=== PATIENT | male | born 1960 | race African-American/Black ===

== ENCOUNTER 2021-07-12 04:40 | Day surgery (SDC) | payer OTHER ==
[2021-07-10 16:09] VITALS: BMI 27.3
[~2021-07-12 04:40] MED LIST: BUPIVACAINE HCL/PF 0.5% (5MG/ML) 10 ML VIAL NR ONE; LIDOCAINE HCL 1%, 10 MG/ML (20ML VIAL) NR ONE; ceFAZolin SODIUM 1 GM VIAL IVPB ONE
[2021-07-12] MEDS ORDERED: LIDOCAINE HCL 1%, 10 MG/ML (20ML VIAL) ONE (09:21)
[2021-07-12] MEDS ORDERED: BUPIVACAINE HCL/PF 0.5% (5MG/ML) 10 ML VIAL ONE (09:21)
[2021-07-12] MEDS ORDERED: PROPOFOL 20 ML ONE ×3 (09:22→11:35)
[2021-07-12] MEDS ORDERED: MIDAZOLAM HCL 2 MG/2 ML SINGLE DOSE VIAL ONE (09:22)
[2021-07-12] MEDS ORDERED: ONDANSETRON 4 MG/2 ML VIAL IVPUSH PRN (09:35)
[2021-07-12] MEDS ORDERED: oxyCODONE HCL 5 MG TABLET PO PRN ×2 (09:35)
[2021-07-12] MEDS ORDERED: LACTATED RINGERS SOLUTION 1,000 ML IV SCH (09:45)
[2021-07-12] MEDS ORDERED: ceFAZolin SODIUM 1 GM VIAL IVPB ONE (09:50)
[2021-07-12] MEDS ORDERED: ceFAZolin SODIUM 1 GM VIAL ONE (09:51)
[2021-07-12] MEDS ORDERED: BUPIVACAINE HCL/PF 0.5% (5MG/ML) 10 ML VIAL NR ONE ×2 (09:53)
[2021-07-12] MEDS ORDERED: LIDOCAINE HCL 1%, 10 MG/ML (20ML VIAL) NR ONE ×2 (09:53)
[2021-07-12 13:52] VITALS: BP 138/80; PULSE 52; TEMP 97.3
== END 2021-07-12 13:10 | disposition home or self-care (01) ==
LOC: JASU-SURG 04:40
PROVIDERS: ATTEND Podiatrist Foot & Ankle Surgery
PROC: 0SRP0JZ Replacement of Right Toe Phalangeal Joint with Synthetic Substitute, Open Approach (ICD-10-PCS; 2021-07-12)
PROC: 0QSQ04Z Reposition Right Toe Phalanx with Internal Fixation Device, Open Approach (ICD-10-PCS; principal; 2021-07-12 10:00)
DX: M20.11 Hallux valgus (acquired), right foot (principal); M20.41 Other hammer toe(s) (acquired), right foot
CPT/HCPCS: 28285; 28298; C1713; 73630-TC-RT-FY; 76000-TC-FY; 88304-TC; 88311-TC

== ENCOUNTER 2021-10-08 08:41 | Inpatient (IN) | payer OTHER ==
[2021-10-01 09:26] VITALS: BMI 29.5
[2021-10-08] MEDS ORDERED: CELECOXIB 200 MG CAPSULE ONE (08:57)
[2021-10-08] MEDS ORDERED: ceFAZolin SODIUM 1 GM VIAL ONE ×2 (09:51→12:26)
[2021-10-08] MEDS ORDERED: VANCOMYCIN 1,000 MG VIAL (RESTRICTED TO ID ONLY) ONE (09:51)
[2021-10-08] MEDS ORDERED: ROPIVACAINE HCL/PF 100 MG/20 ML VIAL ONE (10:03)
[2021-10-08] MEDS ORDERED: BUPIVACAINE HCL 50 ML ONE (10:06)
[2021-10-08] MEDS ORDERED: MIDAZOLAM HCL 2 MG/2 ML SINGLE DOSE VIAL ONE ×2 (10:07)
[2021-10-08] MEDS ORDERED: PROPOFOL 20 ML ONE ×3 (10:07→12:14)
[2021-10-08] MEDS ORDERED: TRANEXAMIC ACID 1000 MG/10 ML VIAL IVPUSH ONE (11:15)
[2021-10-08] MEDS ORDERED: CEFAZOLIN 2 GM in DEXTROSE 5%-WATER - 50 ML IVPB ONE (11:15)
[2021-10-08] MEDS ORDERED: CELECOXIB 200 MG CAPSULE PO ONE (11:15)
[2021-10-08] MEDS ORDERED: MAG HYDROX/AL HYDROX/SIMETH 30 ML UNIT-DOSE CUP PO PRN (11:31)
[2021-10-08] MEDS ORDERED: ONDANSETRON 4 MG/2 ML VIAL IVPUSH PRN ×2 (11:31→13:04)
[2021-10-08] MEDS ORDERED: LACTATED RINGERS SOLUTION 1,000 ML IV SCH (11:45)
[2021-10-08] MEDS ORDERED: ONDANSETRON 4 MG/2 ML VIAL ONE (12:26)
[2021-10-08] MEDS ORDERED: TRANEXAMIC ACID 1000 MG/10 ML VIAL ONE (12:26)
[2021-10-08] MEDS ORDERED: oxyCODONE HCL 5 MG TABLET PO PRN ×2 (13:04)
[2021-10-08] MEDS: ACETAMINOPHEN 1000 MG/100 ML BAG IVPB ONE ×2 (13:10→23:53)
[2021-10-08] MEDS ORDERED: ACETAMINOPHEN INJECTION 100 ML IVPB ONE (13:10)
[2021-10-08] MEDS: ALBUTEROL SO4 HFA INHALER IH SCH ×2 (14:27→23:53)
[2021-10-08] MEDS: CEFAZOLIN SODIUM 2 GM in DEXTROSE 5%-WATER 100 ML IVPB SCH (20:06)
[2021-10-08] MEDS: ACETAMINOPHEN 500 MG TABLET (FP) PO SCH (21:00)
[2021-10-08] MEDS: SENNOSIDES/DOCUSATE COMBO (SENNA PLUS) TABLET (UD) PO SCH (22:04)
[2021-10-09] MEDS ORDERED: PANTOPRAZOLE 40 MG TABLET PO SCH ×2 (02:44→10:00)
[2021-10-09] MEDS: ACETAMINOPHEN 500 MG TABLET (FP) PO SCH ×2 (03:06→09:13)
[2021-10-09] MEDS ORDERED: MELATONIN 5 MG TABLETS PO PRN (03:10)
[2021-10-09] MEDS: CEFAZOLIN SODIUM 2 GM in DEXTROSE 5%-WATER 100 ML IVPB SCH (03:57)
[2021-10-09] MEDS ORDERED: ASPIRIN 325 MG TABLET PO SCH (08:00)
[2021-10-09 08:14] LABS: HEMATOCRIT 37.6 % (35.4-49); HEMOGLOBIN 12.9 G/dL (11.7-16.9); MCH 31.8 pg (25.7-33.7); MCHC 34.3 g/dl (32.0-35.9); MEAN CELL VOLUME 92.7 fl (80-96); PLATELET COUNT 199.7 10^3/uL (134-434); RBC 4.06 10^6/uL (4.00-5.60); RDW 14.5 % (11.9-15.9); WHITE BLOOD COUNT 7.6 10^3/uL (4.0-10.8)
[2021-10-09] MEDS ORDERED: MULTIVITAMINS (DAILY MVI) TABLET (FP) PO SCH (10:00)
[2021-10-09] MEDS: SENNOSIDES/DOCUSATE COMBO (SENNA PLUS) TABLET (UD) PO SCH (10:13)
[2021-10-09] MEDS: ALBUTEROL SO4 HFA INHALER IH SCH ×2 (10:14→14:01)
[2021-10-09 11:37] VITALS: BP 119/53; PULSE 54; TEMP 99.4
== END 2021-10-09 14:45 | disposition home health service (06) | DRG 470 ==
LOC: UNDOADMIN 08:41 → FM/S 08:41
PROVIDERS: ADMIT Orthopaedic Surgery; ATTEND Orthopaedic Surgery
PROC: 8E0W0CZ Robotic Assisted Procedure of Trunk Region, Open Approach (ICD-10-PCS; 2021-10-08)
PROC: 0SR903A Replacement of Right Hip Joint with Ceramic Synthetic Substitute, Uncemented, Open Approach (ICD-10-PCS; principal; 2021-10-08 11:38)
DX: M16.11 Unilateral primary osteoarthritis, right hip (principal)
CPT/HCPCS: 36415; 73502-TC-RT-FY; 85027; 88305-TC; 88311-TC; 94760; 97010-GP; 97116-GP; 97162-GP